=== PATIENT | female | born 1950 | race Caucasian/White ===

== ENCOUNTER 2017-11-15 06:12 | Emergency (ER) | payer OTHER ==
[~2017-11-15] VITALS: Ht 165.1 cm; Wt 95.0 kg
[2017-11-15 06:23] VITALS: BP 143/76; PULSE 86; RESP 18; TEMP 97.7; O2SAT 100
[2017-11-15] MEDS ORDERED: PROPARACAINE HCL 0.5% OPHT SOLN 15 ML BTL EACH EYE ONE (06:45)
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
== END 2017-11-15 07:43 | disposition home or self-care (01) ==
LOC: NEPD 06:12
DX: H57.8 Other specified disorders of eye and adnexa (principal); X08.8XXA Exposure to other specified smoke, fire and flames, initial encounter; Y92.009 Unspecified place in unspecified non-institutional (private) residence as the place of occurrence of the external cause; E11.9 Type 2 diabetes mellitus without complications
CPT/HCPCS: 99281